=== PATIENT | male | born 1975 | race Caucasian/White ===

== ENCOUNTER 2022-06-30 09:21 | Outpatient (CLI) | payer BC, SELFPAY ==
[2022-06-30 17:15] LABS: PSA Screen* 1.09 ng/mL (0.10-4.00)
== END 2022-06-30 09:22 | disposition home or self-care (01) ==
PROVIDERS: PCP Family Medicine; Visit Provider Family Medicine
DX: Z00.00 Encounter for general adult medical examination without abnormal findings (principal); E78.5 Hyperlipidemia, unspecified; Z12.5 Encounter for screening for malignant neoplasm of prostate; R10.9 Unspecified abdominal pain; F41.1 Generalized anxiety disorder; K51.90 Ulcerative colitis, unspecified, without complications
CPT/HCPCS: 80053; 80061; 84153; 84403

== ENCOUNTER 2024-03-09 09:05 | Outpatient (CLI) | payer OTHER, BC, SELFPAY | END 2024-03-09 09:06 | disposition home or self-care (01) | PROVIDERS: PCP Family Medicine; Visit Provider Family Medicine | DX: E78.5 Hyperlipidemia, unspecified (principal); K22.10 Ulcer of esophagus without bleeding; K51.90 Ulcerative colitis, unspecified, without complications; Z12.5 Encounter for screening for malignant neoplasm of prostate | CPT/HCPCS: 80053; 80061; G0103 ==